=== PATIENT | female | born 1980 | race Caucasian/White ===

== ENCOUNTER → 2018-05-14 15:05 | Outpatient (CLI) | payer MEDICAID, SELFPAY ==
[2018-05-14 18:42] LABS: Chlamydia Trachomatis by PCR Negative (Negative); Neisserai gonorrhoeae by PCR Negative (Negative); Probe Check PASS; Sample Adequacy Control PASS; Specimen Processing Control PASS
[2018-05-15 00:19] LABS: Rapid Plasmin Reagin (RPR) NONREACTIVE (NONREACTIVE)
[2018-05-15 10:59] LABS: HIV - WCH Non-Reactive (Nonreactive)
[2018-05-17 03:06] LABS: HCV Quant. RNA PCR HCV Not Detected IU/mL (.)
[2018-05-17 09:07] LABS: HSV 1 IgG 9.73 index (0.00-0.90); HSV 2 IgG < 0.91 index (0.00-0.90)
[2018-05-20 13:11] LABS: HPV APTIMA, High Risk Negative (Negative)
== END ==
PROVIDERS: Visit Provider Nurse Practitioner Women's Health
DX: Z12.4 Encounter for screening for malignant neoplasm of cervix (principal); Z11.3 Encounter for screening for infections with a predominantly sexual mode of transmission
CPT/HCPCS: 36415; 86592; 86695; 86696; 86703; 87491; 87522; 87591; 88175; G0145

== ENCOUNTER → 2018-08-18 17:23 | Outpatient (CLI) | payer MEDICAID, SELFPAY ==
[2018-08-18 19:09] LABS: Chlamydia Trachomatis by PCR Negative (Negative); Neisserai gonorrhoeae by PCR Negative (Negative); Probe Check PASS; Sample Adequacy Control PASS; Specimen Processing Control PASS
== END ==
PROVIDERS: Referring Provider Nurse Practitioner Women's Health; Visit Provider Nurse Practitioner Women's Health
DX: Z11.3 Encounter for screening for infections with a predominantly sexual mode of transmission (principal)
CPT/HCPCS: 87491; 87591

== ENCOUNTER 2018-08-31 06:18 | Emergency (ER) | payer MEDICAID, SELFPAY ==
[2018-08-31 06:19] VITALS: BP 132/89; PULSE 99; RESP 22; TEMP 36.8; O2SAT 100; BMI 24.2
--- NOTE | 2018-08-31 06:27 | RAD_ITS ---
STUDY: X-RAY CHEST REASON FOR EXAM: Female, 38 years old. Dizziness, nausea and vomiting for 1 1/2 weeks. Cough. TECHNIQUE: PA and lateral chest. COMPARISON: None. FINDINGS: Lingular segment subsegmental atelectasis. No focal infiltrates or effusions. No pneumothorax. Normal size heart. Normal mediastinum and candido. Normal visualized pulmonary arteries. Normal visualized aortic arch and descending thoracic aorta. Normal visualized thoracic spine. Normal visualized ribs, clavicles, and shoulders. There is no demonstrated abnormality of the visualized soft tissue structures of the upper abdomen. RAD/Chest PA and Lateral IMPRESSION: No acute cardiopulmonary disease. Electronically Signed: Moreno Larson MD at 7:28 EST , Service support ,
--- NOTE | 2018-08-31 06:27 | EKG12_ITS ---
Test Reason : DIZZINESS Blood Pressure : / mmHG Vent. Rate : 069 BPM Atrial Rate : 069 BPM P-R Int : 114 ms QRS Dur : 090 ms QT Int : 378 ms P-R-T Axes : 056 069 066 degrees QTc Int : 405 ms Normal sinus rhythm Normal ECG Confirmed by CHRISTINE ENRIQUE, PADMINI ([id number]), purchasing expeditor TETE AMADOR ([id number] on 09/02/2018 11:17:23 AM Referred By: SARA Confirmed By:PADMINI KING MD
--- NOTE | 2018-08-31 06:30 | ED.DCSUM_ITS ---
- ER Visit Summary Date of Service: 08/31/18 Chief Complaint: Dizziness History of Present Illness: The patient is a 38 F reports dizziness over the past 2 weeks. Both lightheaded and spinning. Last 3 days nausea and vomiting. No hematemesis. No diarrhea. No urinary symptoms. Vomiting with come with s ymptoms. No headache. Chronic cough with tobacco history. No chest pains. Currently on her menstrual period. Denies any previous similar symptoms in the past. Denies past medical history. Tubal ligation in the past. Physical Examination: General: Alert and oriented ?3, no acute distress HEENT: Normocephalic, atraumatic. Moist mucosa membranes. No nystagmus Neck: supple, nontender. Cardiovascular: Regular rate and rhythm, no murmurs Respiratory: Normal breath sounds, symmetric, no distress Abdomen: Soft, nontender, nondistended Extremities: Nontender, no edema, pulses intact ?4 Neuro: no focal neurological deficits. Test Results: EKG sinus rate of 69, no ST or T wave changes. QTc 405. Hemoglobin 14.8. Potassium 3.5. Creatinine 0.76. Chest x-ray reviewed by myself negative. Emergency Department Course and Treatment: Patient vitals stable, no focal neurologic deficits. EKG normal. Basic labs normal. She had IV fluids and Phenergan. Chest x-ray negative. Reevaluation states still slight dizziness. She is ambulate with no difficulties. Nausea improved. Discussed with patient will continue to manage symptoms continue oral hydration. Prescription for Phenergan. Follow-up as an outpatient. All questions were answered. Treatment Plan: [] Disposition: Discharge Impression: 1. Dizziness 2. Nausea and vomiting This note was generated with [employer] dictation software. It may contain incorrect words, spelling, and punctuation that were not noted in review of the chart prior to signing ED Disposition - Plan for ED Patient: Disposition: Home or Assisted Living Chief Complaint: Dizziness Diagnosis: Dizziness, Nausea and vomiting Instructions: ED Dizziness [facility], ED Nausea Vomiting Prescriptions: proMETHazine tablet [Phenergan] 25 mg PO Q6H PRN PRN #10 tablet PRN Reason: Nausea Referrals: Care Physician,No Primary [NON-STAFF] - Shanon Poole [NON-STAFF] - 3-5 Days if not improving
[2018-08-31] MEDS: 0.9% Normal Saline 1,000 ML 1000 ML IV (06:45)
[2018-08-31] MEDS: proMETHazine 25 MG/ML Syringe 12.5 MG IV (06:45)
[2018-08-31 06:47] LABS: Absolute Lymphocyte Count 1.57 X10^3/ul (0.83-4.51); Absolute Neutrophil Count 8.9 X10^3/uL (2.0-7.7); Basophil# 0.03 X10^3/uL; Basophil% 0.3 % (0-1); Eosinophil# 0.05 X10^3/uL; Eosinophils% 0.5 % (0-5); Hematocrit 43.6 % (37-47); Hemoglobin 14.8 g/dl (12.0-15.0); Lymphocyte # 1.57 X10^3/ul (4.0); Lymphocyte % 14.2 % (19-41); Mean Corp Hgb Conc 33.9 g/gl (32-36); Mean Corpuscular Volume 88.3 fL (81-99); Mean Platelet Vol. 11.2 fl (6.2-12.0); Monocyte# 0.54 X10^3/uL; Monocyte% 4.9 % (0-10); Neutrophil # 8.87 X10^3/uL (2.7-7.7); Neutrophil % 79.9 % (47-70); POSITIVE COUNT NO; POSITIVE DIFFERENTIAL NO; POSITIVE MORPHOLOGY NO; Platelet Count 214 K/mm3 (150-450); RBC Distribution Width CV 12.8 % (11.6-14.6); Red Blood Count 4.94 M/mm3 (4.2-5.4); White Blood Count 11.1 K/mm3 (4.4-11.0)
[2018-08-31 06:53] LABS: Anion Gap 12 (5-15); BUN 7 mg/dL (7-18); BUN/Creat Ratio 9.2 RATIO (10-20); Calcium,Total 8.7 mg/dL (8.5-10.1); Chloride 107 mmol/L (98-107); Creatinine, Serum 0.76 mg/dL (0.55-1.02); EST Glomerular Filtration Rate 90 mL/min (>60); Est Glom Filt Rate - Afr Amer 109 mL/min (>60); Estimated Creatinine Clearance 90.31 ml/min; Glucose 122 mg/dL (74-106); Potassium 3.5 mmol/L (3.5-5.1); Sodium Level 141 mmol/L (136-145)
[2018-08-31 07:25] LABS: Pregnancy, Serum, hCG Quali. NEGATIVE Negative (0-9 Nonpreg)
[2018-08-31 07:43] VITALS: BP 110/81; PULSE 84; RESP 16; O2SAT 97
== END 2018-08-31 07:48 | disposition home or self-care (01) ==
PROVIDERS: Emergency Provider Emergency Medicine
DX: R42 Dizziness and giddiness (principal); R11.2 Nausea with vomiting, unspecified; Z72.0 Tobacco use
CPT/HCPCS: 71046; 80048; 84703; 85025; 93005; 96361; 96374; 99283; J7030; A4216